=== PATIENT | male | born 1995 | race African-American/Black ===

== ENCOUNTER 2020-03-30 13:43 | Emergency (ER) | payer OTHER ==
[2020-03-30 13:50] VITALS: PULSE 88; TEMP 98.2
[2020-03-30] MEDS ORDERED: ONDANSETRON 4 MG/2 ML VIAL IVP STA (14:12)
--- NOTE | 2020-03-30 14:28 | ED ---
Abdominal Pain HPI - General Source: patient Mode of arrival: ambulatory Limitations: no limitations <Bessie Blackburn - Last Filed: 03/30/20 16:42> <Lulu Pappas - Last Filed: 04/01/20 00:24> - General Chief Complaint: Abdominal Pain Stated Complaint: Abd Pain Time Seen by Provider: 03/30/20 14:00 - History of Present Illness Initial Comments: 24-year-old male presenting today for chief complaint of upper abdominal pain patient states his mid abdominal pain he states it is above his bellybutton in the epigastric region. Patient states it moves over towards the right side of the abdomen this is an going on since he ate "bad macaroni 2 days ago" he states pain began yesterday. Patient admits to nausea x 2 days. Patient denies vomiting, diarrhea, fevers, chest pain, SOB, URI symptoms. Patient denies RLQ p ain, periumbilical pain. Patient has no additional complaints. UPon arrival patient appears well in no acute distress, accompanied by a female friend. (Bessie Blackburn) - Related Data Home Medications Medication Instructions Recorded Confirmed Risperdal (Unknown Dose) 1 tab PO BID 03/30/20 03/30/20 Previous Rx's Medication Instructions Recorded Ondansetron Odt [Zofran Odt] 4 mg PO Q8HR PRN 3 Days #9 tab 03/30/20 Ondansetron Odt [Zofran Odt] 4 mg PO Q8HR PRN 3 Days #9 tab 03/30/20 Allergies Allergy/AdvReac Type Severity Reaction Status Date / Time No Known Allergies Allergy Verified 03/30/20 14:14 Review of Systems ROS Other: All systems not noted in ROS Statement are negative. <Bessie Blackburn - Last Filed: 03/30/20 16:42> ROS Other: All systems not noted in ROS Statement are negative. <Lulu Pappas - Last Filed: 04/01/20 00:24> ROS Statement: Those systems with pertinent positive or pertinent negative responses have been documented in the HPI. Past Medical History Past Medical History: No Reported History History of Any Multi-Drug Resistant Organisms: None Reported Past Surgical History: No Surgical Hx Reported Past Psychological History: Schizophrenia Smoking Status: Never smoker Past Alcohol Use History: None Reported Past Drug Use History: None Reported <Bessie Blackburn - Last Filed: 03/30/20 16:42> General Exam Limitations: no limitations <Bessie Blackburn - Last Filed: 03/30/20 16:42> - General Exam Comments Initial Comments: General: The patient is awake and alert, in no distress Eye: +3 mm pupils are equal, round and reactive to light, extra-ocular movements are intact. No nystagmus. There is normal conjunctiva bilaterally. No signs of icterus. Ears, nose, mouth and throat: There are moist mucous membranes and no oral lesions. Cardiovascular: There is a regular rate and rhythm. No murmur, rub or gallop is appreciated. Respiratory: Lungs are clear to auscultation, respirations are non-labored, breath sounds are equal. No wheezes, stridor, rales, or rhonchi. Gastrointestinal: Soft, non-distended, mild epigastric and RUQ tendneress to palpation of the abdomen without masses or organomegaly noted. NO RLQ or periumbilical tenderness to deep palpation. There is no rebound or guarding present. Musculoskeletal: Normal ROM, no tenderness. Strength 5/5. Sensation intact. Radial pulses equal bilaterally 2+. Neurological: A&O x 3. CN II-XII intact grossly, There are no obvious motor or sensory deficits. Coordination appears grossly intact. Speech is normal. Skin: Skin is warm and dry and no rashes or lesions are noted. Psychiatric: Cooperative, appropriate mood & affect, normal judgment. (Bessie Blcakburn) Course Vital Signs 03/30/20 03/30/20 13:47 14:53 Temperature 98.2 F Pulse Rate 88 88 Respiratory 18 16 Rate Blood Pressure 114/71 116/57 O2 Sat by Pulse 97 100 Oximetry Medical Decision Making - Lab Data Result diagrams: 03/30/20 14:25 03/30/20 14:25 <Bessie Blackburn - Last Filed: 03/30/20 16:42> - Lab Data Result diagrams: 03/30/20 14:25 03/30/20 14:25 <Lulu Pappas - Last Filed: 04/01/20 00:24> - Medical Decision Making 24-year-old male presents today for chief complaint of abdominal pain nausea. Labs obtained revealed increased bilirubin. otherwise no significant abnormality. Patient does not appear jaundice. Patient nausea controlled. Pain gone after zofran. He appears well. Discussed case with Dr. Pappas who is agreeable to discharge with outpatient labs repeat with PCP and f/u. Patient is agreeable to discharge and care plan. (Bessie Blackburn) I was available for consultation in the emergency department. The history and physical exam were done by the midlevel provider. I was consulted for this patients care. I reviewed the case with the midlevel provider and based on their presentation of the patient, I agree with the assessment, medical decision making and plan of care as documented. Chart was dictated using [employer] dictation software. Attempts were made to correct any dictation errors however some typographical errors may persist. Patient was seen during a national state of emergency due to the Covid-19 pandemic. (Lulu Pappas) - Lab Data Lab Results 03/30/20 03/30/20 03/30/20 Range/Units 14:25 14:25 14:25 WBC 8.3 (3.8-10.6) k/uL RBC 5.21 (4.30-5.90) m/uL Hgb 14.4 (13.0-17.5) gm/dL Hct 46.7 (39.0-53.0) % MCV 89.7 (80.0-100.0) fL MCH 27.7 (25.0-35.0) pg MCHC 30.9 L (31.0-37.0) g/dL RDW 14.6 (11.5-15.5) % Plt Count 338 (150-450) k/uL Neutrophils % 62 % Lymphocytes % 27 % Monocytes % 4 % Eosinophils % 4 % Basophils % 0 % Neutrophils # 5.2 (1.3-7.7) k/uL Lymphocytes # 2.3 (1.0-4.8) k/uL Monocytes # 0.3 (0-1.0) k/uL Eosinophils # 0.4 (0-0.7) k/uL Basophils # 0.0 (0-0.2) k/uL Hypochromasia Slight Poikilocytosis Slight Sodium 139 (137-145) mmol/L Potassium 4.0 (3.5-5.1) mmol/L Chloride 102 (98-107) mmol/L Carbon Dioxide 26 (22-30) mmol/L Anion Gap 11 mmol/L BUN 5 L (9-20) mg/dL Creatinine 0.75 (0.66-1.25) mg/dL Est GFR (CKD-EPI)AfAm >90 (>60 ml/min/1.73 sqM) Est GFR (CKD-EPI)NonAf >90 (>60 ml/min/1.73 sqM) Glucose 95 (74-99) mg/dL Calcium 10.4 H (8.4-10.2) mg/dL Total Bilirubin 2.1 H (0.2-1.3) mg/dL AST 35 (17-59) U/L ALT 31 (4-49) U/L Alkaline Phosphatase 120 (38-126) U/L Total Protein 8.8 H (6.3-8.2) g/dL Albumin 5.2 H (3.5-5.0) g/dL Lipase 47 (23-300) U/L Disposition Is patient prescribed a controlled substance at d/c from ED?: No Time of Disposition: 15:50 <Bessie Blackburn - Last Filed: 03/30/20 16:42> <Lulu Pappas - Last Filed: 04/01/20 00:24> Clinical Impression: Abdominal pain, Nausea, Elevated bilirubin Disposition: HOME SELF-CARE Condition: Good Instructions (If sedation given, give patient instructions): Abdominal Pain (ED) Additional Instructions: Please use medication as discussed. Please follow-up with family doctor in the next 2 days. Repeat bilirubin levels. Please return to emergency room if the symptoms increase or worsen or for any other concerns. Prescriptions: Ondansetron Odt [Zofran Odt] 4 mg PO Q8HR PRN 3 Days #9 tab PRN Reason: Nausea Ondansetron Odt [Zofran Odt] 4 mg PO Q8HR PRN 3 Days #9 tab PRN Reason: Nausea Referrals: Mayra Cabrera MD [Primary Care Provider] - 1-2 days
[2020-03-30 14:40] LABS: Basophils % (A) 0 %; Eosinophils # (A) 0.4 k/uL (0-0.7); Eosinophils % (A) 4 %; HCT 46.7 % (39.0-53.0); HGB 14.4 gm/dL (13.0-17.5); Hypochromasia Slight; Lymphocytes # (A) 2.3 k/uL (1.0-4.8); Lymphocytes % (A) 27 %; MCH 27.7 pg (25.0-35.0); MCHC 30.9 g/dL (31.0-37.0); MCV 89.7 fL (80.0-100.0); Monocytes # (A) 0.3 k/uL (0-1.0); Monocytes % (A) 4 %; Neutrophils # (A) 5.2 k/uL (1.3-7.7); Neutrophils % (A) 62 %; Platelet Count 338 k/uL (150-450); Poikilocytosis Slight; RBC 5.21 m/uL (4.30-5.90); RDW 14.6 % (11.5-15.5); WBC 8.3 k/uL (3.8-10.6)
[2020-03-30 14:50] LABS: ALT 31 U/L (4-49); AST 35 U/L (17-59); African American GFR (CKD) >90 (>60 ml/min/1.73 sqM); Albumin 5.2 g/dL (3.5-5.0); Alkaline Phosphatase 120 U/L (38-126); Anion Gap 11 mmol/L; Blood Urea Nitrogen 5 mg/dL (9-20); Calcium 10.4 mg/dL (8.4-10.2); Carbon Dioxide 26 mmol/L (22-30); Chloride 102 mmol/L (98-107); Glucose 95 mg/dL (74-99); Non-African American GFR(CKD) >90 (>60 ml/min/1.73 sqM); Sodium 139 mmol/L (137-145); Total Bilirubin 2.1 mg/dL (0.2-1.3); Total Protein 8.8 g/dL (6.3-8.2)
[2020-03-30 14:57] VITALS: BP 116/57; RESP 16
--- NOTE | 2020-03-30 15:20 | US ---
EXAMINATION TYPE: US abdomen limited DATE OF EXAM: 03/30/2020 COMPARISON: NONE CLINICAL HISTORY: RUQ tenderness. Abdomen pain and nausea EXAM MEASUREMENTS: Liver Length: 14.2 cm Gallbladder Wall: 0.1 cm CBD: 0.4 cm Right Kidney: 9.1 x 4.2 x 4.8 cm Pancreas: visualized portions wnl, limited by overlying midline bowel gas Liver: wnl Gallbladder: wnl Evidence for sonographic Peterson's sign: no CBD: visualized portions wnl, limited by overlying bowel gas Right Kidney: wnl IMPRESSION: No distinct abnormality appreciated.
== END 2020-03-30 16:22 | disposition home or self-care (01) ==
LOC: EC 13:43
DX: R10.13 Epigastric pain (principal); R11.0 Nausea; E80.7 Disorder of bilirubin metabolism, unspecified; F20.9 Schizophrenia, unspecified; Z79.899 Other long term (current) drug therapy
CPT/HCPCS: 36415; 80053; 83690; 85025; 76705; 99284; 96374; J2405

== ENCOUNTER → 2021-07-21 | Outpatient (CLI) | payer OTHER ==
--- NOTE | 2021-07-21 11:45 | XR ---
Left wrist and left forearm HISTORY: Trauma and pain, S60.212A 4 views of the left wrist and 2 views left forearm Bone mineralization, joint spaces and alignment are maintained. IMPRESSION: Normal left forearm and left wrist
== END | disposition home or self-care (01) ==
LOC: RADXRMAIN 10:30
PROVIDERS: ATTEND Emergency Medicine
DX: M25.532 Pain in left wrist (principal); M79.632 Pain in left forearm

== ENCOUNTER → 2021-07-27 | Outpatient (CLI) | payer OTHER ==
--- NOTE | 2021-07-27 16:04 | XR ---
EXAMINATION TYPE: XR wrist complete LT, XR hand complete LT DATE OF EXAM: 07/27/2021 CLINICAL HISTORY: Recent injury with pain. TECHNIQUE: Frontal, lateral and oblique images of the left wrist and hand are obtained. 4 view scap hoid view is performed. COMPARISON: Prior left wrist xray 6 days ago FINDINGS: There is no acute fracture/dislocation evident in the left wrist. The joint spaces in the left wrist appear stable and within normal limits. The overlying soft tissue appears unremarkable. Images of left hand show no acute displaced fracture. The joint spaces are preserved. Overlying soft tissue is unremarkable. IMPRESSION: There is no acute fracture or dislocation in the left hand or wrist.
== END | disposition home or self-care (01) ==
LOC: RADXRMAIN 15:26
PROVIDERS: ATTEND Emergency Medicine
DX: S69.92XA Unspecified injury of left wrist, hand and finger(s), initial encounter (principal); M25.532 Pain in left wrist; M79.642 Pain in left hand